=== PATIENT | male | born 1990 | race Caucasian/White ===

== ENCOUNTER 2025-04-19 18:03 | Emergency (ER) | payer OTHER ==
[~2025-04-19] VITALS: Ht 190.5 cm; Wt 100.0 kg
[~2025-04-19 18:03] MED LIST: IBUPROFEN400 MG PO; MULTIPLE VITAM1 EAC1 PO; PERCOCET 5-3251 EACH PO
[2025-04-19 19:50] VITALS: BP 00/00
== END 2025-04-19 20:16 | disposition left against medical advice (07) ==
LOC: ED 18:03
DX: Z53.21 Procedure and treatment not carried out due to patient leaving prior to being seen by health care provider (principal)

== ENCOUNTER 2025-04-20 09:27 | Emergency (ER) | payer OTHER ==
[~2025-04-20] VITALS: Ht 190.5 cm; Wt 91.1 kg
--- OUTSIDE RECORDS SUMMARY | 2025-04-20 09:33 | XMS ---
PreManage Notification: KHOI LEWIS [employer] Events No recent Security Events currently on file CRITERIA MET - [facility] - 2 Visits in [address] JORDANA Hu Clinic/Center: Primary Care Current MD [facility] \F\ <UNAVAIL> PHONE: [phone] Nanci has no Care Guidelines for this patient. Yves VISIT COUNT (12 MO.) 2 [facility] TOTAL 2 NOTE: Visits indicate total known visits. ED/C VISIT TRACKING (12 MO.) 04/20/2025 09:27 [facility] TYPE: Emergency COMPLAINT: - FOOT INJURY 04/19/2025 18:03 [facility] [place] TYPE: Emergency COMPLAINT: - LF FOOT INJURY DIAGNOSES: - Procedure and treatment not carried out due to patient leaving prior to being seen by health care provider - Unspecified injury of left foot, initial encounter INPATIENT VISIT TRACKING (12 MO.) No inpatient visits to display in this time frame [id number]
[2025-04-20 11:01] VITALS: BP 117/80
== END 2025-04-20 11:02 | disposition home or self-care (01) ==
LOC: ED 09:27
DX: S92.355A Nondisplaced fracture of fifth metatarsal bone, left foot, initial encounter for closed fracture (principal); W18.49XA Other slipping, tripping and stumbling without falling, initial encounter
CPT/HCPCS: 73630; 99283